=== PATIENT | female | born 1945 | race Hispanic/Latino ===

== ENCOUNTER 2017-08-24 07:05 | Day surgery (SDC) | payer MEDICARE ==
[2017-08-24] MEDS ORDERED: WATER FOR IRRIG STERILE IR ONE (07:22)
[2017-08-24] MEDS ORDERED: WATER FOR IRRIG STERILE ONE (07:22)
[2017-08-24] MEDS ORDERED: NACL 0.9% 1000 ML 1,000 ML IV SCH (08:00)
--- NOTE | 2017-08-24 08:00 | Anesthesia Day of Surgery ---
Anesthesia Day of Surgery - Day of Surgery Patient Examined: Yes Patient H&P Reviewed: Yes Patient is NPO: Yes
--- NOTE | 2017-08-24 08:01 | Anesthesia Consultation ---
Anesthesia Consult and Med Hx Date of service: 08/24/17 - Airway Anesthetic Teeth Evaluation: Good ROM Head & Neck: Inadequate Mental/Hyoid Distance: Inadequate Mallampati Class: Class III Intubation Access Assessment: Possibly Difficult - Pulmonary Exam CTA: Yes - Cardiac Exam Cardiac Exam: RRR - Pre-Operative Health Status ASA Pre-Surgery Classification: ASA3 Proposed Anesthetic Plan: General - Cardiovascular System Hx Hypertension: Yes - Other Systems Hx Obesity: Yes - Additional Comments Anesthesia Medical History Comments: hx DVT/PE 2 years ago-on eliquis d/luisa for procedure
[2017-08-24] MEDS ORDERED: DIPRIVAN 10 MG/ML IV ONE ×2 (08:43)
[2017-08-24] MEDS ORDERED: XYLOCAINE 1% 20 mL ONE (08:43)
--- NOTE | 2017-08-24 09:27 | Post Operative Note ---
Pre-op diagnosis: Screening colonoscopy Post-op diagnosis: same Findings: Normal colonoscopy to cecum Procedure: Colonoscopy to cecum Anesthesia: AKJAL Surgeon: SERA TSEEN Estimated blood loss: none Pathology: none Condition: stable Disposition: same day
--- NOTE | 2017-08-24 09:43 | Post Anesthesia Evaluation ---
- Post Anesthesia Evaluation Patient Participated: Yes Airway Patent: Yes Stable Respiratory Function: Yes Nausea/Vomiting: No Temp > 96.8F: Yes Pain Manageable: Yes Adequeate Hydration: Yes Anesthesia Complications: No
[2017-08-24 10:00] VITALS: BP 149/80
--- NOTE | 2017-08-30 08:42 | Procedure Note ---
Date of procedure: 08/24/17 Pre-op diagnosis: Screening colonoscopy Post-op diagnosis: same Procedure: Colonoscopy to cecum Description of procedure: Pt was placed in a left side down position. She was sedated IV by anesthesia. Colonoscope was inserted into her rectum and was advanced retrograde while directly visualizing the colonic lumen. The prep was adequate. Once the cecum was identified, the scope was slowly withdrawn with careful, circumferential visualization of the colonic mucosa. No polyps, tumors , ulcerations or diverticula were noted. Retroflexed view of the distal rectum was also performed and was unrevealing. Insufflated air was suctioned and the scope withdrawn. Procedure was well tolerated.
== END 2017-08-24 07:06 | disposition home or self-care (01) ==
LOC: GIO 07:05
PROVIDERS: ATTEND Surgery
DX: Z12.11 Encounter for screening for malignant neoplasm of colon (principal); I10 Essential (primary) hypertension; E66.9 Obesity, unspecified; Z68.34 Body mass index [BMI] 34.0-34.9, adult; Z86.718 Personal history of other venous thrombosis and embolism; Z86.711 Personal history of pulmonary embolism; Z90.49 Acquired absence of other specified parts of digestive tract
CPT/HCPCS: G0121; J2704; J7030